=== PATIENT | female | born 1990 | race Two or more races ===

== ENCOUNTER 2021-09-29 03:02 | Emergency (ER) | payer SELFPAY ==
[~2021-09-29] VITALS: Ht 165.1 cm; Wt 57.0 kg
[2021-09-29] MEDS ORDERED: LORAZEPAM 0.5MG TABLET PO ONE (04:00)
[2021-09-29 04:33] VITALS: BP 105/58
== END 2021-09-29 04:33 | disposition home or self-care (01) ==
LOC: ER 03:02
DX: J02.9 Acute pharyngitis, unspecified (principal); F41.9 Anxiety disorder, unspecified
CPT/HCPCS: 99283